=== PATIENT | female | born 1955 | race African-American/Black ===

== ENCOUNTER 2018-12-09 07:47 | Day surgery (SDC) | payer BC, OTHER ==
[2018-12-08 11:54] VITALS: BMI 29.8
[2018-12-09] MEDS ORDERED: PROPOFOL 20 ML ONE ×2 (09:11)
[2018-12-09] MEDS ORDERED: MIDAZOLAM HCL 2 MG/2 ML SINGLE DOSE VIAL ONE (09:11)
[2018-12-09] MEDS ORDERED: ROCURONIUM BROMIDE 50 MG/5 ML SYRINGE ONE (09:11)
[2018-12-09] MEDS ORDERED: ceFAZolin SODIUM 1 GM VIAL IVPB ONE (09:28)
[2018-12-09] MEDS ORDERED: NEOSTIGMINE METHYLSULFATE 0.5 MG/ML - 10 ML MDV ONE (09:55)
--- NOTE | 2018-12-09 10:07 | HP ---
Admitting History and Physical - Admission Chief Complaint: right lower ext varicose veins Limitations to Obtaining History: No Limitations - Smoking History Smoking history: Never smoked - Alcohol/Substance Use Hx Alcohol Use: No Home Medications - Allergies Allergies/Adverse Reactions: Allergies Allergy/AdvReac Type Severity Reaction Status Date / Time No Known Allergies Allergy Verified 12/09/18 08:35 - Home Medications Home Medications: Ambulatory Orders Levothyroxine [Synthroid -] 75 mcg PO DAILY 12/08/18 Review of Systems - Review of Systems Constitutional: reports: No Symptoms Eyes: reports: No Symptoms HENT: reports: No Symptoms Neck: reports: No Symptoms Cardiovascular: reports: No Symptoms Respiratory: reports: No Symptoms Gastrointestinal: reports: No Symptoms Genitourinary: reports: No Symptoms Breasts: reports: No Symptoms Reported Musculoskeletal: reports: No Symptoms Integumentary: reports: No Symptoms Neurological: reports: No Symptoms Endocrine: reports: No Symptoms Hematology/Lymphatic: reports: No Symptoms Psychiatric: reports: No Symptoms Physical Examination Vital Signs: Vital Signs Temperature 97.9 F 12/09/18 08:20 Pulse Rate 56 L 12/09/18 08:20 Respiratory Rate 20 12/09/18 08:20 Blood Pressure 125/42 L 12/09/18 08:20 O2 Sat by Pulse Oximetry (%) 100 12/09/18 08:18 Constitutional: Yes: Well Nourished, No Distress, Calm Eyes: Yes: WNL, Conjunctiva Clear, EOM Intact HENT: Yes: WNL, Atraumatic, Normocephalic Neck: Yes: WNL, Supple, Trachea Midline Cardiovascular: Yes: WNL, Regular Rate and Rhythm Respiratory: Yes: WNL, Regular, CTA Bilaterally Gastrointestinal: Yes: WNL, Normal Bowel Sounds Musculoskeletal: Yes: WNL Extremities: Yes: WNL Edema: No Peripheral Pulses WNL: Yes Integumentary: Yes: WNL Neurological: Yes: WNL, Alert, Oriented ...Motor Strength: WNL Psychiatric: Yes: WNL Problem List - Problems (1) Varicose veins of right leg with edema Assessment/Plan: for stab phlebectomy of varicose veins Code(s): I83.891 - VARICOSE VEINS OF R LOW EXTREM WITH OTHER COMPLICATIONS
--- NOTE | 2018-12-09 10:10 | OP ---
Operative Note - Note: Operative Date: 12/09/18 Pre-Operative Diagnosis: Right lower extremity varicose veins Operation: Stab phlebectomy right lower extremity - 4 stabs Post-Operative Diagnosis: Same as Pre-op Surgeon: Kayden Mcdaniel Anesthesia: Fractional Estimated Blood Loss (mls): 50 Operative Report Dictated: Yes
[2018-12-09] MEDS ORDERED: ONDANSETRON 4 MG/2 ML VIAL IVPUSH PRN (10:24)
[2018-12-09] MEDS ORDERED: PROMETHAZINE HCL 25 MG/1 ML VIAL IVPUSH PRN (10:24)
[2018-12-09] MEDS ORDERED: oxyCODONE HCL 5 MG TABLET PO PRN (10:24)
[2018-12-09] MEDS ORDERED: LACTATED RINGERS SOLUTION 1,000 ML IV SCH (10:30)
--- NOTE | 2018-12-09 10:52 | OP ---
DATE OF OPERATION: 12/09/2018 PREOPERATIVE DIAGNOSIS: Right lower extremity varicose veins. POSTOPERATIVE DIAGNOSIS: Right lower extremity varicose veins. PROCEDURE: Stab phlebectomy, varicose veins, right lower extremity; 4 stabs total. SURGEON: Kayden Thorne DO ANESTHESIA: General. BLOOD LOSS: 50 mL. Patient is a 63-year-old female who has bulging veins in the right posterior fossa in her right lower extremity. Patient needed stab phlebectomy. Patient got medical and cardiology clearance prior to the surgery and then came in through ambulatory surgery. Patient was consented for the procedure, understanding all risks, benefits, alternatives. Then, taken to the operating room. Once in the operating room, she was laid on the operating table in a prone fashion. She was intubated first and then placed prone on the operating room table. Thereafter, we prepped and draped the right posterior fossa behind the knee with Betadine in a sterile surgical manner. We then went ahead and performed stab phlebectomy, making 4 stabs total and taking out the varicosities using . Once the varicose veins were removed using vein hooks and cryoclamps to pull the veins out, we held pressure over the 4 stabs. After there was no more bleeding, area was wet and dried. Dermabond was placed, 4 x 4's, Kerlix, and an Hakan bandage were placed. Patient tolerated the procedure with no complications. Total blood loss 50 mL. Patient transferred to PACU in stable condition. KAYDEN THORNE DO NP/[id number]
[2018-12-09 12:43] VITALS: BP 105/61; PULSE 52; TEMP 97.6
--- NOTE | 2018-12-10 17:27 | PATH ---
Surgical Pathology Report Patient Name: ANIKET MIRZA [facility]. Rec. #: [id number] /Age/Gender: 1955 (Age: 63) / F Account: [id number] Location: [facility] SURGICAL Taken: 12/09/2018 Received: 12/09/2018 Reported: 12/10/2018 Physicians: Kayden Mcdaniel Specimen(s) Received VARICOSE VEINS RIGHT LEG Clinical History Varicose veins Final Diagnosis VARICOSE VEIN, RIGHT LEG, EXCISION: PORTIONS OF VARICOSE VEIN. Electronically Signed Rosa Llanos M.D. Gross Description Received in formalin labeled "varicose vein right leg" are 6 portions of vascular structure ranging from 0.3 cm to 1.1 cm in length and up to 0.5 cm in diameter. Button Spindler sections and the one cassette KWS/12/09/2018 sulte/12/09/2018
== END 2018-12-09 12:40 | disposition home or self-care (01) ==
LOC: JASU-SURG 07:47
PROVIDERS: ATTEND Surgery Vascular Surgery
PROC: 06BY0ZZ Excision of Lower Vein, Open Approach (ICD-10-PCS; principal; 2018-12-09 09:00)
DX: I83.891 Varicose veins of right lower extremity with other complications (principal)
CPT/HCPCS: 86850; 86900; 86901; 88304-TC; 94760